=== PATIENT | male | born 1955 ===

== ENCOUNTER 2023-04-21 10:53 | Day surgery (SDC) | payer MEDICARE ==
[~2023-04-21] VITALS: Ht 175.3 cm; Wt 87.6 kg
--- NOTE | 2023-04-21 11:02 | NUR ---
1102 PATIENT ARRIVES TO UNIT ACCOMPANIED BY HIS COUSIN AZAM. PATIENT AMBULATED TO SCALE WITH A STEADY GAIT, NO ASSISTIVE DEVICES UTILIZED. OBTAINED PATIENTS TAMMIEH AND AFTAB. PATIENT WAS ESCORTED TO ROOM 8. 1115 THIS NURSE CALLED AISHA WITH ANESTHESIA TO CLARIFY THE ORDER. AISHA VERBALIZED THAT PATIENT WILL BE RECEIVING A GENERAL ANESTHETIC AND A BLOCK TO RIGHT UPPER EXTREMITY. 1118 THIS NURSE REVIEWED CONSENTS WITH PATIENT. PATIENT STATES THAT HE SHOULD BE HAVING SURGERY ON HIS RIGHT ELBOW. THE CONSENT FOR PROCEDURE STATES THAT IT IS THE LEFT. THIS NURSE CONTACTED FANI IVERSON, WHO STATES THAT SHE WOULD PUT A NEW ORDER IN THE SYSTEM FOR THE RIGHT ELBOW. 1130 PATIENT SIGNED CONSENT WITH CORRECT EXTREMITY ON PAPERWORK. THIS NURSE REVIEWED PATIENT HISTORY, MEDICATIONS AND ALLERGIES. 1145 PATIENT CHANGED SELF IN TO CLEAN GOWN. 1200 THIS NURSE ATTEMPTED TO START IV X 2 ON LEFT UPPER EXTREMITY WITHOUT SUCCESS. ANOTHER NURSE ATTEMPTED X 1 WITH NO SUCCESS. IV SERVICES WAS CONTACTED. 1240 IV SERVICES WAS ABLE TO SUCCESSFULLY START 20G IV TO THE LEFT AC. 1250 PATIENT STATES THAT HE NEEDS TO USE THE RESTROOM. THIS NURSE ASSISTED PATIENT TO THE RESTROOM. PATIENT WAS ABLE TO VOID WITH NO DIFFICULTIES. 1350 PATIENT WAS TAKEN BACK TO PACU TO TALK TO ANESTHESIA AND ZAYRA, WELL RECEIVE NERVE BLOCK TO RIGHT UPPER EXTREMITY.
[2023-04-21] MEDS ORDERED: COUMADIN 5MG5 MG/TAB PO (11:46)
[2023-04-21] MEDS ORDERED: K-DUR 10 MEQ T10 MEQ PO (11:47)
[2023-04-21] MEDS ORDERED: LASIX 40MG TABL40 MG PO (11:47)
[2023-04-21] MEDS ORDERED: NEURONTIN300 MG/CAP (11:48)
[2023-04-21] MEDS ORDERED: LEXAPRO20 MG PO (11:49)
[2023-04-21 12:26] VITALS: BP 134/70; PULSE 66
[2023-04-21 15:24] VITALS: BP 104/72; PULSE 67; TEMP 98.5
--- NOTE | 2023-04-21 15:24 | NUR ---
1524 PATIENT RETURNS TO ROOM 8 VIA CART. PATIENT IS ALERT AND ORIENTED. RESPIRATIONS EVEN AND UNLABORED. ON ROOM AIR. VITAL SIGNS OBTAINED. PATIENT HAS A SLING AND DRESSING TO THE RIGHT UPPER EXTREMITY. DRESSING IS CDI. CAP REFILL BRISK AND RADIAL PULSES PALPABLE. PATIENT STATES THAT HE HAS SOME FEELING IN HIS RUE, BUT THAT HE DOES NOT HAVE ANY PAIN. PATIENT COUSIN, AZAM, BROUGHT BACK TO ROOM. PATIENT REQUESTED A PEPSI AND PUDDING. NO DIFFICULTIES SWALLOWING. 1600 THIS NURSE DISCONTINUED IV FROM LEFT AC WITH NO DIFFICULTIES. IV CATHETER INTACT. 1605 THIS NURSE REVIEWED DISCHARGE INSTRUCTIONS WITH PATIENT. PATIENT VERBALIZED UNDERSTANDING. 1615 PATIENT DISCHARGED FROM UNIT VIA WHEELCHAIR IN STABLE CONDITION.
[2023-04-21] MEDS ORDERED: NORCO 325 MG-51 TAB PO (15:30)
[2023-04-21] MEDS ORDERED: CEPHALEXIN500 M1 PO (15:30)
== END 2023-04-21 16:15 | disposition home or self-care (01) ==
LOC: SDCO 10:53
DX: M70.32 Other bursitis of elbow, left elbow (principal); Z87.891 Personal history of nicotine dependence
CPT/HCPCS: J0690; J1100; J1580; J2250; J2704; J2795; J3010; J7120